=== PATIENT | male | born 1995 | race Hispanic/Latino ===

== ENCOUNTER 2024-09-14 20:44 | Emergency (ER) | payer OTHER, SELFPAY ==
[2024-09-14 21:05] VITALS: BP 112/71
[2024-09-14 21:38] LABS: COVID-19 Antigen Negative (Negative)
[2024-09-14 23:25] VITALS: BP 110/66
[2024-09-14 23:29] VITALS: BMI 22.8
[2024-09-15 01:10] LABS: % Basophils 0.5 % (0-2); % Eosinophils 1.9 % (0-6); % Immature Granulocytes 0.4 % (0-0.5); % Lymphocytes 20.3 % (20.5-51.1); % Neutrophils 68.9 % (42.2-75.2); Absolute Basophils 0.1 10^3/uL (0-0.2); Absolute Eosinophils 0.2 10^3/uL (0-0.7); Absolute Monocytes 0.8 10^3/uL (0.1-0.6); Absolute Neutrophils 6.8 10^3/uL (1.4-6.5); Blood Urea Nitrogen 21 mg/dl (9-20); Calcium 7.3 mg/dl (8.4-10.2); Carbon Dioxide 20 mmol/L (22-30); Chloride 109 mmol/L (98-107); Estimated Creatinine Clearance > 125 ml/min; Glucose 100 mg/dl (70-99); Hematocrit 37.4 % (39.0-52.0); Hemoglobin 12.7 g/dL (13.0-18.0); Mean Corpuscular Volume 88.2 fL (80.0-94.0); Mean Platelet Volume 8.1 fL (7.4-10.4); Nucleated Red Blood Cells % 0 % (-); Platelet Count 500 10^3/uL (130-400); Potassium 3.4 mmol/L (3.5-5.1); Red Blood Cell Count 4.24 10^6/uL (4.70-6.10); Sodium 138 mmol/L (135-145); White Blood Cell Count 9.9 10^3/uL (4.8-10.8); eGFR > 60.00
[2024-09-15 01:17] LABS: Amphetamines Positive (Negative); Barbiturates Negative (Negative); Benzodiazepines Positive (Negative); Buprenorphine Positive (Negative); Cocaine Positive (Negative); Methadone Negative (Negative); Methamphetamines Positive (Negative); Opiates Negative (Negative)
[2024-09-15 01:18] LABS: Marijuana Positive (Negative); Phencyclidine Negative (Negative); Tricyclic Antidepressants Negative (Negative)
[2024-09-15] MEDS: TORADOL 30 MG IV (01:26)
[2024-09-15] MEDS: NSS 1000 IV (01:28)
[2024-09-15 01:32] LABS: Fentanyl, Urine Positive (Negative)
--- NOTE | 2024-09-15 01:41 | ED.GENMED ---
History of Present Illness
General
Chief Complaint: Cold/Flu/URI Symptoms
Source: patient and family (Significant other at bedside)
Exam Limitations: none
Time Seen by Provider: 09/15/24 00:02
Nursing documentation reviewed up to this point in time: agreed with
History of Present Illness
History of Present Illness:
This is a 29-year-old male who has prior history of substance use disorder. Admits to sporadic Suboxone use but no return to opioid use.
He complains of 5 to 7-day history of flulike symptoms, sinus congestion, subjective fever as well as primarily left-sided headache with pain and pressure left maxillary sinus, left frontal region as well as pressure sensation behind his left eye.
No vision difficulty. He denies neck nor back pain.
He denies sore throat, rare cough a few days ago. No chest pain or shortness of breath. Has been taking Tylenol sporadically as well as ibuprofen with mild/temporary relief.
No close contacts with similar symptoms.
No recent travel.
He takes no medicines on a daily basis.
Past History
Past History
ED Past Medical History: None; Negative Asthma, HTN, Hypercholesterolemia or NIDDM
ED Past Surgical History: None
Social History
Tobacco: Smoker
Alcohol: None
Drug: Former user
Personal: Single
Living: with family
Employment: Not employed
Family History
Family History: Other (Noncontributory)
Phy Exam
Physical Exam
Physical Exam:
GENERAL: 29-year-old male appears his stated age, moderately drowsy, oriented x 3, appears moderately uncomfortable. Afebrile. Vital signs within normal limits
EYE: pupils equal and reactive. Extraocular muscles intact. Anicteric
NECK: Supple, nontender, no meningismus, no significant adenopathy.
ENT: posterior pharynx is without injection, scant pearly postnasal drip is noted, oral mucosa is moist. TM clear b/l, moderately boggy turbinates more so on the left than right with pearly mucopus noted on the left. Moderate tenderness left
maxillary sinus and mild tenderness left frontal sinus. No facial swelling nor erythema. No orbital swelling nor erythema nor orbital tenderness.
CARDIAC: Regular rate and rhythm. no murmur.
LUNGS: Clear breath sounds bilaterally, no acute respiratory distress, no wheezes/rales/rhonchi
ABDOMEN: Soft, nondistended, without focal tenderness, no r/g, no cvat. normoactive BS.
NEUROLOGICAL: Awake, moderately drowsy, and oriented x3, no focal neuro deficits.
SKIN: Warm and dry, normal color, skin intact. No rash.
MUSCULOSKELETAL: No C/C/E. peripheral pulses are full and equal b/l. No palpable tenderness.
PSYCH: Normal and appropriate interaction.
Course
Orders/Labs/Results
Orders:
Orders
09/14/24 21:09
COVID-19 Antigen Urgent
Source: Nasal Swab
Influenza A+B Rapid Molecular Urgent
[facility]IE Source: Nasal Swab
Specimen Description:
09/15/24 00:23
CT Head W/o Iv Contrast Urgent
Comment:
Reason For Exam: left sided headache x few days
09/15/24 00:24
0.9% Sodium Chloride 1000 ml [Nss] 1,000 ml IV BOLUS
09/15/24 00:47
Basic Metabolic Panel Urgent
Complete Blood Count/With Diff Urgent
Fentanyl, Urine Urgent
Urine Drug Abuse Screen Urgent
Date Specimen was Collected: 09/15/24
Time Specimen was Collected: 00:33
09/15/24 00:59
Ketorolac [Toradol] 30 mg IV NOW STA
Abnormal Lab Results
09/15/24
00:47
RBC 4.24 L 10^6/uL
(4.70-6.10)
Hgb 12.7 L g/dL
(13.0-18.0)
Hct 37.4 L %
(39.0-52.0)
Plt Count 500 H 10^3/uL
(130-400)
Absolute Neuts (auto) 6.8 H 10^3/uL
(1.4-6.5)
Absolute Monos (auto) 0.8 H 10^3/uL
(0.1-0.6)
Lymphocytes % 20.3 L %
(20.5-51.1)
Potassium 3.4 L mmol/L
(3.5-5.1)
Chloride 109 H mmol/L
(98-107)
Carbon Dioxide 20 L mmol/L
(22-30)
BUN 21 H mg/dl
(9-20)
Creatinine 0.5 L mg/dL
(0.7-1.3)
Glucose 100 H mg/dl
(70-99)
Calcium 7.3 L mg/dl
(8.4-10.2)
Ur Buprenorphine Positive H
(Negative)
Urine Fentanyl Screen Positive H
(Negative)
Ur Amphetamines Screen Positive H
(Negative)
U Methamphetamines Scrn Positive H
(Negative)
U Benzodiazepines Scrn Positive H
(Negative)
Urine Cocaine Screen Positive H
(Negative)
U Marijuana (THC) Screen Positive H
(Negative)
09/15/24 00:47
09/15/24 00:47
Vital Signs
Initial and Last Documented VS:
Initial Vital Signs
Temp Pulse Resp BP Pulse Ox
98.3 F 103 16 112/71 99
09/14/24 21:05 09/14/24 21:05 09/14/24 21:05 09/14/24 21:05 09/14/24 21:05
Last Documented Vital Signs
Temp Pulse Resp BP Pulse Ox
98.1 F 74 18 110/66 94
09/14/24 23:25 09/14/24 23:28 09/14/24 23:28 09/14/24 23:25 09/14/24 23:33
MDM/Problems Addressed
Differential Diagnosis Includes:
Concern for acute sinusitis, acute intracranial abnormality, migraine headache.
Patient is afebrile, neck is supple without meningismus, meningitis is much less likely.
COVID and flu testing are negative.
Will check labs, CT of the head.
Due to prior history of substance use disorder, will check UDS.
Will initiate IV fluids. If CT unrevealing will trial an IV dose of Toradol.
*Radiology
Radiology exam reviewed: radiology read reviewed
*Pulse Oximetry
Patient hypoxic: no
*Critical Care Note
Total Time (30-74mins, 75-104mins- exclusive of procedures): Not Applicable
Update Note
Update Note:
02:40
Patient remains moderately sedate, sleeps when undisturbed, arouses with tactile stimuli.
Urine drug screen positive for fentanyl, buprenorphine, amphetamines, methamphetamine, benzodiazepines, cocaine as well as marijuana.
Girlfriend reported to nurse that patient had been given a 'pain pill' from a friend catrachito. He adamantly denies IV drug use. He is otherwise guarded and noncommittal when and what he has been using more recently.
CT of the head is unremarkable save for paranasal sinus mucosal thickening.
White blood cell count normal at 9.9. Very mild anemia. Chemistries show mild hypokalemia at 3.4. Mild hypocalcemia.
Overall appears comfortable after IV fluids and an IV dose of Toradol.
No history of chronic sinusitis and patient reiterates that sinus congestion and left maxillary/frontal sinus pain began 4 days ago.
Will treat acute sinusitis conservatively with a course of prednisone, steroid nasal spray.
Encouraged to discontinue all illicit drug use. He has been offered B cares which he declines.
Prompt follow-up with PCP for recheck.
ED Attending Note
-
Portions of this chart may have been created with voice recognition software.� Occasional wrong word or��sound alike� substitutions may have occurred due to the inherent limitations of voice recognition software.
Discharge Plan
Departure
Patient Disposition: Home (Routine Discharge)
Date of Disposition: 09/15/24
Time of Disposition: 02:38
Patient with high blood pressure during this ER visit?: No
Condition: Good
Discharge Problem:
Acute maxillary sinusitis, polysubstance drug use
Instructions: Substance use disorder, Sinusitis in adults - ED discharge instructions
Prescriptions:
New
prednisone 20 mg tablet
40 mg PO DAILY Qty: 10 0RF
fluticasone propionate 50 mcg/actuation spray,suspension
2 spray intranasal DAILY Qty: 16 0RF
No Action
levofloxacin 500 MG tablet
500 mg PO DAILY Qty: 9 0RF
Referrals:
Romain Ulloa DO [Primary Care Provider] - Call in 1-3 days for appt
Interventions
Interventions:
*Risk Screen - Suicide Last Done: 09/14/24 21:05
*General Assessment Last Done: 09/14/24 21:05
*Neglect/Abuse Screening Last Done: 09/14/24 21:05
*ED COVID-19 Vaccine History Last Done: 09/14/24 21:05
ED- Pulmonary Assessment Last Done: 09/14/24 23:33
Discharge Date and Time
Print Language: DANISH
== END 2024-09-15 04:28 | disposition home or self-care (01) ==
LOC: EMR 20:44
PROVIDERS: Student in an Organized Health Care Education/Training Program; EMERGENCY PHYSICIAN Emergency Medicine; PRIMARYCARE PHYSICIAN Family Medicine
DX: J01.00 Acute maxillary sinusitis, unspecified (principal); F19.90 Other psychoactive substance use, unspecified, uncomplicated; F17.200 Nicotine dependence, unspecified, uncomplicated
CPT/HCPCS: 96374; 96361; 99284; 70450; 80048; 80306; 80307; 85025; 87502; 87811